=== PATIENT | female | born 1960 | race Caucasian/White ===

== ENCOUNTER 2024-07-09 17:16 | Emergency (ER) | payer MEDICAID ==
[~2024-07-09] VITALS: Ht 157.5 cm; Wt 49.1 kg
[~2024-07-09 17:16] MED LIST: 00186-0370-20 IH; ALBUTEROL0.83 MG/ML IH; AMOXICILLIN 8751 TAB PO; CATAFLAM50 MG PO; CEPHALEXIN500 M1 PO; CLEOCIN HCL300 MG PO; GLUCOPHAGE1000 MG PO; GLUCOTROL 5M5 MG/TAB PO; LANTUS SOLOS100 U/ML SQ; LIPITOR 40MG TA40 MG PO; NASALCROM5.2 MG/ACT NS; NOVOLOG FLEX100 U/ML SQ; PRIL40 PO; RESTASIS0.05% OP; VITAMIN D31000 I1 PO; XALATAN EYE DROPS OU; XANAX .25M0.25 MG/TA PO; ZESTRIL 5MG5 MG PO; ZETIA 10MG TAB10 MG PO; ZOLOFT 25MG25 MG PO
[2024-07-09 17:30] VITALS: TEMP 98.5
[2024-07-09 20:01] VITALS: BP 156/87; PULSE 79
== END 2024-07-09 20:08 | disposition home or self-care (01) ==
LOC: COL.ER 17:16
DX: T82.198A Other mechanical complication of other cardiac electronic device, initial encounter (principal); Z87.891 Personal history of nicotine dependence